=== PATIENT | female | born 1995 | race African-American/Black ===

== ENCOUNTER 2023-05-19 15:21 | Emergency (ER) | payer MEDICAID ==
[~2023-05-19] VITALS: Ht 170.2 cm; Wt 59.0 kg
[2023-05-19 15:43] VITALS: O2SAT 100
[2023-05-19] MEDS ORDERED: ACET325T52 MT (18:46)
[2023-05-19 19:04] VITALS: BP 132/76; PULSE 99; RESP 18; TEMP 97.8
== END 2023-05-19 19:06 | disposition home or self-care (01) ==
LOC: ER 15:21
DX: S90.122A Contusion of left lesser toe(s) without damage to nail, initial encounter (principal); W22.8XXA Striking against or struck by other objects, initial encounter; Y93.89 Activity, other specified; Y92.89 Other specified places as the place of occurrence of the external cause; Y99.8 Other external cause status
CPT/HCPCS: 73630; 99283